=== PATIENT | male | born 1955 | race Caucasian/White ===

== ENCOUNTER 2018-06-22 08:49 | Emergency (ER) | payer OTHER ==
[~2018-06-22] VITALS: Ht 182.9 cm; Wt 75.0 kg
[2018-06-22] MEDS ORDERED: SODIUM CHLORIDE FLUSH 10ML SYR IVF ONE (09:30)
[2018-06-22 09:36] LABS: CULTURE INDICATED? NO; MICROSCOPIC AUTO
[2018-06-22] MEDS ORDERED: ASPI-515 PO (09:39)
[2018-06-22 09:48] LABS: BASOPHILS # (AUTO) 0.01 x10^3/uL (0-0.1); BASOPHILS % (AUTO) 0 % (0-1); EOSINOPHILS # (AUTO) 0.02 x10^3/uL (0-0.4); EOSINOPHILS % (AUTO) 0 % (1-7); LYMPHOCYTES % (AUTO) 8 % (22-44); MD NO; MEAN CORPUSCULAR HEMOGLOBIN 32.8 pg (27.5-34.5); MEAN CORPUSCULAR HGB CONC 34.8 g/dL (33.2-36.2); MEAN CORPUSCULAR VOLUME 94.2 fL (81-97); MONOCYTES # (AUTO) 0.56 x10^3/uL (0.2-0.8); MONOCYTES % (AUTO) 6 % (2-9); NEUTROPHILS # (AUTO) 8.73 x10^3/uL (1.8-6.8); NEUTROPHILS % (AUTO) 86 % (42-75); PLATELET COUNT 254 x10^3/uL (130-400); RED BLOOD COUNT 4.77 x10^6/uL (4.38-5.82); RED CELL DISTRIBUTION WIDTH 13.7 % (9.4-14.8)
[2018-06-22 09:57] LABS: ANION GAP 8 mmol/L (5-15); CALCIUM 9.1 mg/dL (8.5-10.1); CHLORIDE 108 mmol/L (98-107); CREATININE 0.98 mg/dL (0.7-1.3)
[2018-06-22] MEDS ORDERED: ONDANSETRON ODT 4 MG PO ONE (11:30)
[2018-06-22] MEDS ORDERED: HYDROmorphone 2 MG/ML, 1ML IM ONE (11:30)
[2018-06-22] MEDS ORDERED: HYDROmorphone 2 MG/ML, 1ML ONE (11:33)
[2018-06-22] MEDS ORDERED: ONDANSETRON ODT 4 MG ONE (11:33)
[2018-06-22 12:08] VITALS: BP 114/72
== END 2018-06-22 12:10 | disposition home or self-care (01) ==
LOC: ED 10:28
DX: N20.1 Calculus of ureter (principal); I48.0 Paroxysmal atrial fibrillation
CPT/HCPCS: 36415; 74176; 80048; 81001; 82040; 85025; 99285; Q0162

== ENCOUNTER 2020-10-24 12:07 | Emergency (ER) | payer OTHER ==
[~2020-10-24] VITALS: Ht 182.9 cm; Wt 78.7 kg
[~2020-10-24 12:07] MED LIST: ASPI-515 PO
[2020-10-24] MEDS ORDERED: ADENOSINE 6 MG/2 ML ONE (12:50)
[2020-10-24] MEDS ORDERED: AMIODARONE 50 MG/ML, 3ML ONE (12:50)
[2020-10-24] MEDS ORDERED: ADENOSINE 6 MG/2 ML IVPush ONE ×2 (13:00)
--- NOTE | 2020-10-24 13:06 | NUR ---
PT TOLERATED ADENOSINE ADMINISTRATION WELL. NOW IN SINUS TACH. PT REPORTS RELIEF ASSOCIATED WITH TRANSITION TO NORMAL RHYTHM.
[2020-10-24] MEDS ORDERED: 0.9 % SODIUM CHLORIDE 10 ML VIAL IV STA (13:12)
[2020-10-24 13:16] LABS: BASOPHILS % (AUTO) 1 % (0-1); EOSINOPHILS % (AUTO) 1 % (1-7); LYMPHOCYTES % (AUTO) 12 % (22-44); MEAN CORPUSCULAR HEMOGLOBIN 32.1 pg (27.5-34.5); MEAN CORPUSCULAR HGB CONC 34.4 g/dL (33.2-36.2); MEAN PLATELET VOLUME 7.9 fL (7.4-10.4); MONOCYTES % (AUTO) 10 % (2-9); NEUTROPHILS % (AUTO) 77 % (42-75); PLATELET COUNT 280 x10^3/uL (130-400); RED BLOOD COUNT 4.61 x10^6/uL (4.38-5.82)
[2020-10-24 13:26] LABS: CHLORIDE 108 mmol/L (98-107)
[2020-10-24] MEDS ORDERED: SODIUM CHLORIDE 0.9% 1,000ML IVBOLUS ONE (13:30)
[2020-10-24 13:32] LABS: MD NO
--- NOTE | 2020-10-24 13:32 | NUR ---
REPORT TO ANTHONY CERDA AND ANTHONY IZAGUIRRE. PT MOVED TO ROOM 14. DAUGHTER AT BEDSIDE.
--- NOTE | 2020-10-24 13:35 | NUR ---
assumed care of pt. pt moved from T4 to room 14. report from Merissa CRUZ. pt here for palpitations that woke him up this AM. pt reports that he has hx of same but that it has never been bad enough to wake him up. per report, upon admit, pt was found to be in SVT and was converted after a dose of adenosine. at this time, pt is resting on gurney in position of comfort. pt is currently tachycardic on monitor, but denies CP or SOB. no resp. distress. speaking full sentences without difficulty. pale warm and dry. pt daughter at bedside. pt updated on POC pt aware that urine sample needed
[2020-10-24 13:42] LABS: ALANINE AMINOTRANSFERASE 94 U/L (12-78); ALBUMIN 3.3 g/dL (3.4-5.0); ALKALINE PHOSPHATASE 103 U/L (45-117); ANION GAP 4 mmol/L (5-15); BILIRUBIN,TOTAL 1.2 mg/dL (0.2-1.0); CALCIUM 9.2 mg/dL (8.5-10.1); CREATININE 1.15 mg/dL (0.7-1.3); TOTAL PROTEIN 6.8 g/dL (6.4-8.2); TROPONIN I 0.033 ng/mL (0.000-0.045)
--- NOTE | 2020-10-24 14:42 | NUR ---
RA trial inititiated per . pt denies SOB denies CP
--- NOTE | 2020-10-24 14:56 | NUR ---
PATIENT RESTING COMFORTABLY, SPOUSE AT BEDSIDE. PATIENT STATES NO CHEST PAIN, SOB, BUT NOT ABLE TO VOID AT THIS TIME
--- NOTE | 2020-10-24 15:15 | NUR ---
PATIENT IS TOLERATING ROOM AIR WELL AND O2 SAT IS 95%
[2020-10-24 18:24] VITALS: BP 116/72
== END 2020-10-24 18:25 | disposition home or self-care (01) ==
LOC: ED 14:08
DX: I47.1 Supraventricular tachycardia (principal); R00.2 Palpitations
CPT/HCPCS: 36415; 71045; 80053; 83735; 84443; 84484; 85025; 93005; 96361; 96374; 99291; J0153; J7030